=== PATIENT | female | born 1970 | race Caucasian/White ===

== ENCOUNTER → 2018-04-17 | Day surgery (SDC) | payer OTHER ==
[~2018-04-17] MED LIST: ANASPAZ0.125 MG PO; PERCOCET 5-3251 EACH PO
== END | disposition home or self-care (01) ==
LOC: ADM 04-15 12:15 → CIR.AMB 04-16 12:15
DX: D35.1 Benign neoplasm of parathyroid gland (principal)

== ENCOUNTER 2021-04-28 21:46 | Emergency (ER) | payer OTHER ==
[~2021-04-28] VITALS: Ht 149.9 cm; Wt 52.6 kg
[2021-04-28] MEDS ORDERED: ESTROVEN 155 M155 MG (21:57)
[2021-04-28] MEDS ORDERED: AZOR 5-20 MG T1 EACH (21:57)
[2021-04-28] MEDS ORDERED: DITROPAN XL10 MG (21:57)
[2021-04-28] MEDS ORDERED: PEPCID AC20 MG PO (23:38)
[2021-04-28] MEDS ORDERED: ZOFRAN8 MG PO (23:38)
== END 2021-04-28 23:44 | disposition home or self-care (01) ==
LOC: ER 21:46
DX: K52.89 Other specified noninfective gastroenteritis and colitis (principal)

== ENCOUNTER 2022-01-03 16:58 | Emergency (ER) | payer OTHER ==
[~2022-01-03] VITALS: Ht 149.9 cm; Wt 54.4 kg
[~2022-01-03 16:58] MED LIST changes: +AZOR 5-20 MG T1 EACH; +DITROPAN XL10 MG; +ESTROVEN 155 M155 MG; +PEPCID AC20 MG PO; +ZOFRAN8 MG PO
[2022-01-03] MEDS ORDERED: DICLOFENAC-MIS1 EAC3 PO (17:18)
[2022-01-03] MEDS ORDERED: VITAMIN D-40010 MCG (17:18)
== END 2022-01-04 00:21 | disposition home or self-care (01) ==
LOC: ER 16:58
DX: N13.2 Hydronephrosis with renal and ureteral calculous obstruction (principal); R10.9 Unspecified abdominal pain

== ENCOUNTER 2024-04-09 16:25 | Emergency (ER) | payer OTHER ==
[~2024-04-09] VITALS: Ht 124.5 cm; Wt 52.2 kg
[~2024-04-09 16:25] MED LIST changes: +DICLOFENAC-MIS1 EAC3 PO; +VITAMIN D-40010 MCG
[2024-04-09 16:43] VITALS: BP 134/83; O2SAT 97
[2024-04-09] MEDS ORDERED: KETOROLAC TROMETHAMINE 15 MG VIAL IM STA (17:35)
[2024-04-09] MEDS ORDERED: METAXALONE800 MG PO (20:07)
[2024-04-09] MEDS ORDERED: CELEBREX200MG PO (20:07)
== END 2024-04-09 20:29 | disposition home or self-care (01) ==
LOC: ER 16:27
DX: M54.50 Low back pain, unspecified (principal); G89.11 Acute pain due to trauma